=== PATIENT | male | born 1955 | race Caucasian/White ===

== ENCOUNTER 2018-02-12 13:56 | Emergency (ER) | payer MEDICARE, OTHER ==
[~2018-02-12] VITALS: Ht 175.2 cm; Wt 65.8 kg
[2018-02-12 14:58] LABS: BASO % 0.5 % (0.0-1.0); EOS % 0.5 % (1.0-4.0); HEMATOCRIT 45.2 % (42.0-52.0); HEMOGLOBIN 14.9 g/dl (14.0-18.0); LYMPH # 1.4 10*3/uL (1.3-4.4); LYMPH % 22.2 % (27.0-41.0); MEAN CELL VOLUME 96.4 fl (80.0-94.0); MEAN CORPUSCULAR HGB 31.8 pg (27.0-31.0); MEAN PLATELET VOLUME 10.2 fl (9.6-12.3); MONO # 0.5 10*3/uL (0.1-1.0); MONO % 7.6 % (3.0-9.0); NEUT # 4.4 10*3/uL (2.3-7.9); NEUT % 68.9 % (47.0-73.0); PLATELET COUNT AUTOMATED 270 10*3/uL (130-400); RED BLOOD COUNT 4.69 10*6/uL (4.50-5.90); RED CELL DISTRI WIDTH 15.4 % (0-14.5); WHITE BLOOD COUNT 6.4 10*3/uL (4.8-10.8)
[2018-02-12 15:20] LABS: ALBUMIN 3.4 gm/dl (3.1-4.5); ALKALINE PHOSPHATASE 52 U/L (45-117); BUN 11 mg/dl (7-24); CHLORIDE 100 mmol/L (98-107); CREATININE 0.91 mg/dL (0.70-1.30); POTASSIUM 3.7 mmol/L (3.5-5.1); SGOT/AST 24 IU/L (3-35); SGPT/ALT 31 U/L (12-78); SODIUM 136 mmol/L (136-145); TOTAL PROTEIN 7.4 gm/dL (6.4-8.2)
[2018-02-12 15:25] LABS: TROPONIN I < 0.015 ng/ml (<0.045)
[2018-02-12] MEDS ORDERED: Meclizine25 MG PO (15:42)
== END 2018-02-12 15:36 | disposition home or self-care (01) ==
LOC: ED 13:56
PROVIDERS: Nurse Practitioner Family
DX: R42 Dizziness and giddiness (principal); Z98.890 Other specified postprocedural states